=== PATIENT | female | born 1960 | race Caucasian/White ===

== ENCOUNTER 2021-09-27 00:04 | Emergency (ER) | payer OTHER ==
[~2021-09-27] VITALS: Ht 165.1 cm; Wt 84.8 kg
[2021-09-27] MEDS ORDERED: SILADRYL12.5 MG/5 PO (02:05)
[2021-09-27] MEDS ORDERED: DECADRON6 MG PO (02:05)
[2021-09-27] MEDS ORDERED: CEFDINIR300 MG PO (02:06)
[2021-09-27] MEDS ORDERED: MOBIC15 MG PO (02:06)
[2021-09-27] MEDS ORDERED: NORFLEX100 MG PO (02:22)
[2021-09-27 02:33] VITALS: BP 162/85
== END 2021-09-27 02:33 | disposition home or self-care (01) ==
LOC: M.ERS 00:04
DX: S16.1XXA Strain of muscle, fascia and tendon at neck level, initial encounter (principal); S33.5XXA Sprain of ligaments of lumbar spine, initial encounter; M54.2 Cervicalgia; R51.9 Headache, unspecified; M54.50 Low back pain, unspecified; R07.89 Other chest pain; F17.210 Nicotine dependence, cigarettes, uncomplicated; Z79.899 Other long term (current) drug therapy; Z79.2 Long term (current) use of antibiotics; V89.2XXA Person injured in unspecified motor-vehicle accident, traffic, initial encounter; Y93.89 Activity, other specified; Y92.89 Other specified places as the place of occurrence of the external cause; Y99.8 Other external cause status